=== PATIENT | male | born 1955 | race Caucasian/White ===

== ENCOUNTER 2016-06-27 20:52 | Emergency (ER) | payer MEDICARE, MEDICAID ==
[~2016-06-27] VITALS: Ht 177.8 cm; Wt 105.0 kg
[~2016-06-27 20:52] MED LIST: DIAZ10TA4 PO; METO50TA82 PO
[2016-06-27] MEDS ORDERED: DIPHENHYDRAMINE 50 MG/ML, 1ML ONE (22:27)
[2016-06-27] MEDS ORDERED: KETOROLAC 30 MG/1 ML ONE (22:27)
[2016-06-27] MEDS ORDERED: KETOROLAC 30 MG/1 ML IVPush ONE (22:30)
[2016-06-27] MEDS ORDERED: SODIUM CHLORIDE 0.9%, 500ML IVBOLUS ONE (22:30)
[2016-06-27] MEDS ORDERED: SODIUM CHLORIDE FLUSH 10ML SYR IVF ONE (22:30)
[2016-06-27] MEDS ORDERED: DIPHENHYDRAMINE 25 MG CAPSULE PO ONE (22:30)
[2016-06-27] MEDS ORDERED: DIPHENHYDRAMINE 25 MG CAPSULE ONE (23:03)
[2016-06-27 23:19] LABS: BLOOD UREA NITROGEN 15 mg/dL (7-18)
[2016-06-28] MEDS ORDERED: OMNIPAQUE 350 MG/ML, 100ML BOTTLE ONE (00:13)
[2016-06-28 00:31] VITALS: BP 126/78
== END 2016-06-28 01:11 | disposition home or self-care (01) ==
LOC: ED 06-28 01:05
DX: E04.2 Nontoxic multinodular goiter (principal); M54.2 Cervicalgia; I10 Essential (primary) hypertension
CPT/HCPCS: 36415; 70491; 80048; 82040; 84439; 84443; 85025; 96374; 99285; J1885; J7040; Q0163; Q9967